=== PATIENT | male | born 1950 | race Caucasian/White ===

== ENCOUNTER 2016-04-29 18:02 | Inpatient (IN) | payer OTHER, MEDICAID ==
[2016-04-29] MEDS ORDERED: methylPREDNISolone SOD SUCC 125 MG/2 ML VIAL IVP ONE (18:29)
--- NOTE | 2016-04-29 18:30 | EDPHY ---
H & P Stated Complaint: COPD exacerbation HPI/ROS: Chief complaint shortness of breath HPI: 65-year-old male with known COPD and schizophrenia presenting from [facility] with worsening shortness of breath. Patient states that he intermittently wears 4-5 L of oxygen. Head worsening shortness of breath today. States that he sometimes uses inhalers but does not get them consistently is not sure with AR. Denies any fevers or chills. No cough. States he is feeling somewhat better after being brought in by ambulance. No nausea or vomiting. He is still smoking in did smoke this morning. ROS: 10 point Review of Systems is negative except as noted in the HPI. Past medical history: Schizophrenia, COPD Medications: Unknown Allergies: Penicillin Physical exam: - Personal History Current Tetanus/Diphtheria Vaccine: Unsure Current Tetanus Diphtheria and Acellular Pertussis (TDAP): Unsure - Medical/Surgical History Hx Asthma: Yes Hx Chronic Respiratory Disease: Yes Hx Diabetes: Yes Hx Cardiac Disease: No Hx Renal Disease: No Hx Cirrhosis: Yes Hx Alcoholism: Yes Hx HIV/AIDS: No Hx Splenectomy or Spleen Trauma: No Other PMH: copd,schizophrenia,sz,anxiety,DMII - Social History Smoking Status: Current every day smoker Constitutional: Initial Vital Signs Temperature (C) 37 C 04/29/16 18:20 Heart Rate 92 04/29/16 18:20 Respiratory Rate 22 H 04/29/16 18:20 Blood Pressure 126/84 H 04/29/16 18:20 O2 Sat (%) 91 L 04/29/16 18:20 O2 Delivery Mode Nasal Cannula O2 (L/minute) 4 Allergies/Adverse Reactions: Penicillins Allergy (Verified 11/18/15 19:10) Home Medications: Medication Instructions Recorded Acetaminophen [Tylenol ES 500 mg 500 mg PO Q8 PRN 04/29/16 (*)] Albuterol [Proventil Inhaler HFA 2 puffs IH Q4 PRN MDD COPD 04/29/16 (*)] Aspirin [Aspirin 325 mg (*)] 325 mg PO DAILY 04/29/16 Atorvastatin Calcium [Lipitor 40 80 mg PO HS 04/29/16 mg (*)] Cholecalciferol Vit D3 [Vitamin D3 50,000 unit PO MO@0800 04/29/16 (*)] Fluticasone/Salmeter 250/50Mcg 1 puffs IH BID 04/29/16 [Advair 250/50 (*)] Magnesium Hydroxide [Milk of 30 ml PO Q12 PRN 04/29/16 Magnesia] Nicotine [Nicoderm Cq 7 mg (*)] 7 mg TD DAILY PRN 04/29/16 Polyethylene Glycol 3350 [Miralax 17 gm PO DAILY PRN 04/29/16 17 gm (*)] Prochlorperazine Maleate 5 - 10 mg PO Q6 PRN 04/29/16 [Compazine 5mg (*)] QUEtiapine FUMARATE [Seroquel 300 mg PO BID 04/29/16 300mg (*)] Tamsulosin HCl [Flomax 0.4 MG (*)] 0.4 mg PO DAILY 04/29/16 Tiotropium Inhaler [Spiriva 18 mcg IH DAILY 04/29/16 Handihaler] clonAZEPAM [CLONAZEPAM] 0.25 mg PO BID PRN 04/29/16 levETIRAcetam [Keppra 500 mg (*)] 500 mg PO BID 04/29/16 traMADol [Ultram 50 mg (*)] 50 mg PO Q12H PRN 04/29/16 Medical Decision Making ED Course/Re-evaluation: 65-year-old male with COPD exacerbation. Patient satting at 88% on 4 L nasal cannula. I have discussed with Dr. Rolando vega, hospitalist. Will admit to his service for further evaluation and care. - Data Points Laboratory Results: Laboratory Results 04/29/16 18:40 04/29/16 18:40 04/29/16 04/29/16 18:40 18:40 WBC 6.51 10^3/uL 10^3/uL (3.80-9.50) RBC 4.24 10^6/uL L 10^6/uL (4.40-6.38) Hgb 13.6 g/dL L g/dL (13.7-17.5) Hct 40.0 % % (40.0-51.0) MCV 94.3 fL fL (81.5-99.8) MCH 32.1 pg pg (27.9-34.1) MCHC 34.0 g/dL g/dL (32.4-36.7) RDW 13.2 % % (11.5-15.2) Plt Count 180 10^3/uL 10^3/uL (150-400) MPV 9.4 fL fL (8.7-11.7) Neut % (Auto) 73.4 % % (39.3-74.2) Lymph % (Auto) 20.4 % % (15.0-45.0) [place] % (Auto) 4.6 % % (4.5-13.0) Eos % (Auto) 0.9 % % (0.6-7.6) Baso % (Auto) 0.5 % % (0.3-1.7) Nucleat RBC Rel Count 0.0 % % (0.0-0.2) Absolute Neuts (auto) 4.78 10^3/uL 10^3/uL (1.70-6.50) Absolute Lymphs (auto) 1.33 10^3/uL 10^3/uL (1.00-3.00) Absolute Monos (auto) 0.30 10^3/uL 10^3/uL (0.30-0.80) Absolute Eos (auto) 0.06 10^3/uL 10^3/uL (0.03-0.40) Absolute Basos (auto) 0.03 10^3/uL 10^3/uL (0.02-0.10) Absolute Nucleated RBC 0.00 10^3/uL 10^3/uL (0-0.01) Immature Gran % 0.2 % % (0.0-1.1) Immature Gran # 0.01 10^3/uL 10^3/uL (0.00-0.10) Sodium 144 mEq/L mEq/L (134-144) Potassium 4.0 mEq/L mEq/L (3.5-5.2) Chloride 101 mEq/L mEq/L (97-110) Carbon Dioxide 34 mEq/l H mEq/l (22-31) Anion Gap 9 mEq/L mEq/L (8-16) BUN 14 mg/dL mg/dL (7-23) Creatinine 0.5 mg/dL L mg/dL (0.7-1.3) Estimated GFR > 60 Glucose 133 mg/dL H mg/dL (70-100) Calcium 9.2 mg/dL mg/dL (8.5-10.4) Medications Given: Discontinued Medications Methylprednisolone Sodium Succinate (Solu-Medrol) 125 mg IVP EDNOW ONE Stop: 04/29/16 18:30 Last Admin: 04/29/16 19:04 Dose: 125 mg Departure - Departure Disposition: [facility] Acute Clinical Impression: Chronic obstructive pulmonary disease with acute exacerbation Condition: Fair
[2016-04-29 18:49] LABS: % IMMATURE GRANULYOCYTES 0.2 % (0.0-1.1); ABSOLUTE IMMATURE GRANULOCYTES 0.01 10^3/uL (0.00-0.10); ADD DIFF? NO; ADD MORPH? NO; ADD SCAN? NO; ATYPICAL LYMPHOCYTE FLAG 10 (0-99); FRAGMENT RBC FLAG 0 (0-99); HEMOGLOBIN 13.6 g/dL (13.7-17.5); LEFT SHIFT FLG 0 (0-99); LIPEMIA HEMOLYSIS FLAG 90 (0-99); MEAN CELL HEMOGLOBIN 32.1 pg (27.9-34.1); MEAN CELL VOLUME 94.3 fL (81.5-99.8); MEAN PLATELET VOLUME 9.4 fL (8.7-11.7); PLATELET CLUMPS FLAG 10 (0-99); PLATELET COUNT 180 10^3/uL (150-400); RED BLOOD CELL COUNT 4.24 10^6/uL (4.40-6.38); RED CELL DISTRIBUTION WIDTH 13.2 % (11.5-15.2)
[2016-04-29 19:00] LABS: ANION GAP 9 mEq/L (8-16); CALCIUM 9.2 mg/dL (8.5-10.4); CARBON DIOXIDE 34 mEq/l (22-31); CHLORIDE 101 mEq/L (97-110); CREATININE 0.5 mg/dL (0.7-1.3); GLOMERULAR FILTRATION RATE > 60; GLUCOSE 133 mg/dL (70-100); SODIUM 144 mEq/L (134-144)
[2016-04-29] MEDS ORDERED: ACETAMINOPHEN 325 MG TAB PO PRN (19:13)
--- NOTE | 2016-04-29 19:49 | GHP ---
[f rep st] HISTORY AND PHYSICAL DATE OF ADMISSION: 04/29/2016 CHIEF COMPLAINT: Short of breath. HISTORY OF PRESENT ILLNESS: This is a 65-year-old man who resides at [facility] who came in dona use of shortness of breath. He notes that he has COPD, continues to smoke. His shortness of breath started this morning. Not associated with any chest pain. He does have a productive cough. His n ext-door neighbor saw him and said that he looks so poorly that he should call 911. He is using his inhalers. He has not run out of any medications. PAST MEDICAL/SURGICAL HISTORY: 1. Schizophrenia. 2. COPD on unclear amount of oxygen (somewhere between 1 and 4 L at baseline). 3. BPH. 4. Hyperlipidemia. 5. Hip fracture status post repair. 6. Multiple orthopedic injuries. 7. CVA with residual left-sided weakness. MEDICATIONS: Please see medication reconciliation. ALLERGIES: Penicillin. FAMILY HISTORY: No COPD. SOCIAL HISTORY: He lives at [facility]. He continues to smoke. He does not drink alcohol. REVIEW OF SYSTEMS: A 10-point review of systems is conducted and is negative except per HPI. PHYSICAL EXAM: VITAL SIGNS: Blood pressure is 126/84, heart rate 92, respiration rate 22, saturati ng 91% on 4 L, temperature is 37. GENERAL: The patient is a pleasant man who appears moderately un comfortable, somewhat withdrawn. HEENT: Shows him to have his eyes closed during most of the inter view. He is normocephalic, atraumatic. CARDIOVASCULAR: Exam shows a regular rate and rhythm. No m urmurs, rubs, or gallops, but he does have a faint S1 and S2. PULMONARY: Exam shows him to be in m ild respiratory distress. He has wheezes with forced expiration. He has diminished breath sounds b ilaterally, but they are still audible. ABDOMEN: Soft, nontender, nondistended. SKIN: No rash. : No White. NEUROLOGIC: Exam shows him to be alert and oriented x3. He is moving all extremiti es. PSYCHIATRIC: Exam shows him to be somewhat tangential. LABS: CBC is relatively unremarkable apart from a mild anemia. Bicarb is 34, glucose 133. DATA: 1. Chest x-ray, which I personally viewed and interpreted, shows mild hyperexpansion, normal heart size. He has mild increase in his pulmonary vasculature. 2. I discussed with Dr. Pryor. Will admit to Medical-Surgical Unit. IMPRESSION AND PLAN: A 65-year-old man with a suspected chronic obstructive pulmonary disease exace rbation. 1. Chronic obstructive pulmonary disease exacerbation: He is moderately sick. He will receive kev roids, as well as IV antibiotics. Will place him on continuous pulse oximetry. If he worsens, will place him on BiPAP. I do not suspect any cardiovascular or pulmonary embolic etiologies of his dys pnea. 2. Ihoza-pm-vkulgop respiratory failure: Due to the above. 3. Likely chronic respiratory acidosis: His bicarb is elevated. Will recheck his basic metabolic panel in the morning. I do not think he needs an ABG at this point. 4. Schizophrenia: Seems well compensated. Will continue his medications when these are reconciled . 5. Hyperlipidemia. 6. Cerebrovascular accident with residual weakness: Will continue his aspirin and statin. 7. Code status is full. 8. Venous thromboembolism risk is moderate. Will give him low-dose Lovenox. /[id number]/MODL
[2016-04-29] MEDS ORDERED: IPRATROPIUM/ALBUTEROL 3 ML DEYVIAL ONE (20:44)
[2016-04-29] MEDS: IPRATROPIUM/ALBUTEROL 3 ML DEYVIAL IH SCH (20:48)
[2016-04-29] MEDS: AZITHROMYCIN IV 500 MG in D5W 250 ML IV SCH (21:20)
[2016-04-29] MEDS ORDERED: ALBUTEROL 60 PUFFS/8 GM MDI IH PRN (21:36)
[2016-04-29] MEDS ORDERED: NON-FORMULARY NEW DRUG (Clonazepam [Clonazepam] 0.25 MG) PO PRN (21:36)
[2016-04-29] MEDS ORDERED: MAGNESIUM HYDROXIDE 30 ML UDCUP PO PRN (21:36)
[2016-04-29] MEDS ORDERED: NICOTINE 7 MG/24 HR PATCH TD PRN (21:36)
[2016-04-29] MEDS ORDERED: PROCHLORPERAZINE MALEATE 5 MG TAB PO PRN (21:36)
[2016-04-29] MEDS ORDERED: POLYETHYLENE GLYCOL 3350 17 GM PKT PO PRN (21:36)
[2016-04-29] MEDS ORDERED: clonazePAM 0.5 MG TAB PO PRN (21:58)
[2016-04-29] MEDS: QUEtiapine FUMARATE 300 MG TAB PO SCH (23:53)
[2016-04-30 04:57] LABS: % IMMATURE GRANULYOCYTES 0.2 % (0.0-1.1); ABSOLUTE IMMATURE GRANULOCYTES 0.01 10^3/uL (0.00-0.10); ADD DIFF? NO; ADD MORPH? NO; ADD SCAN? NO; ATYPICAL LYMPHOCYTE FLAG 0 (0-99); FRAGMENT RBC FLAG 0 (0-99); HEMATOCRIT 40.3 % (40.0-51.0); HEMOGLOBIN 13.5 g/dL (13.7-17.5); LEFT SHIFT FLG 0 (0-99); LIPEMIA HEMOLYSIS FLAG 80 (0-99); MEAN CELL HEMOGLOBIN 31.7 pg (27.9-34.1); MEAN CELL HEMOGLOBIN CONCENTR. 33.5 g/dL (32.4-36.7); MEAN CELL VOLUME 94.6 fL (81.5-99.8); MEAN PLATELET VOLUME 9.8 fL (8.7-11.7); PLATELET CLUMPS FLAG 0 (0-99); PLATELET COUNT 176 10^3/uL (150-400); RED BLOOD CELL COUNT 4.26 10^6/uL (4.40-6.38); RED CELL DISTRIBUTION WIDTH 13.1 % (11.5-15.2)
[2016-04-30 05:07] LABS: ANION GAP 8 mEq/L (8-16); CARBON DIOXIDE 31 mEq/l (22-31); CHLORIDE 102 mEq/L (97-110); CREATININE 0.5 mg/dL (0.7-1.3); GLOMERULAR FILTRATION RATE > 60; GLUCOSE 170 mg/dL (70-100); POTASSIUM 4.3 mEq/L (3.5-5.2); SODIUM 141 mEq/L (134-144)
[2016-04-30] MEDS: IPRATROPIUM/ALBUTEROL 3 ML DEYVIAL IH SCH ×4 (05:11→22:20)
[2016-04-30] MEDS ORDERED: PNEUMOCOCCAL 0.5ML VACCINE VIAL IM ONE (07:42)
[2016-04-30] MEDS ORDERED: FLU VACC QS 2016-17(3-64YR)/PF 0.5 ML SYR (FLUARIX QUAD) IM ONE (07:42)
[2016-04-30] MEDS ORDERED: CHOLECALCIFEROL VIT D3 50,000 UNIT CAP PO SCH (08:00)
--- NOTE | 2016-04-30 08:33 | HOSPPROG ---
Hospitalist Progress Note Assessment/Plan: Patient is a 65-year-old man who resides at [facility] came in because of shortness of breath. He has COPD and continues to smoke. Today is my 1st encounter with the patient. Chart reviewed. * COPD exacerbation - started on IV antibiotics - on 5 L * acute on chronic respiratory failure -Patient wears oxygen at baseline but is unclear of how much oxygen he is on * chronic respiratory acidosis - stable/improved *Nicotine dependence -says he has cut back/ nicotine patch * recent hip surgery - patient states he is wheelchair-bound - will ask PT and OT to see * schizophrenia - well compensated * hyperlipidemia * history of a cerebral vascular accident with residual weakness - on aspirin and statin therapy * DVT prophylaxis - low molecular weight heparin * plan. Will see how he does overnight. He was started on azithromycin and prednisone and will see if he improves. Patient states he is upset about living at [facility]. He feels that he is treated poorly there. I suspect this also contributed him being admitted Subjective: Pavan is not complaining of pain but the shortness of breath. He states that shortness of breath is chronic. Objective: Vital Signs Temp Pulse Resp BP Pulse Ox 36.6 C 95 20 98/71 L 94 04/30/16 08:00 04/30/16 08:00 04/30/16 08:00 04/30/16 08:00 04/30/16 08:00 Laboratory Results 04/30/16 04:25 04/30/16 04:25 04/29/16 04/30/16 05/01/16 05:59 05:59 05:59 Intake Total 480 250 Output Total 300 275 Balance 180 -25 - Physical Exam Constitutional: no apparent distress, chronically ill appearing Eyes: PERRL Ears, Nose, Mouth, Throat: hearing normal Cardiovascular: regular rate and rhythym Respiratory: no respiratory distress, reduced air movement (bibasilar) Skin: warm Musculoskeletal: generalized weakness Neurologic: AAOx3 Psychiatric: interacting appropriately, not anxious, not encephalopathic ICD10 Worksheet Patient Problems: Problems Problem Status Onset Chronic obstructive pulmonary disease with acute exacerbation Acute Displaced fracture of left femoral neck Acute
[2016-04-30] MEDS: AZITHROMYCIN IV 500 MG in D5W 250 ML IV SCH (09:47)
[2016-04-30] MEDS: ENOXAPARIN 40 MG/0.4 ML SYR SC SCH (09:50)
[2016-04-30] MEDS: TAMSULOSIN HCL 0.4 MG CAP PO SCH (09:50)
[2016-04-30] MEDS: predniSONE 20 MG TAB PO SCH (09:50)
[2016-04-30] MEDS: levETIRAcetam 500 MG TAB PO SCH ×2 (09:51→20:22)
[2016-04-30] MEDS: ASPIRIN 325 MG TAB PO SCH (09:51)
[2016-04-30] MEDS: QUEtiapine FUMARATE 300 MG TAB PO SCH ×2 (09:51→20:22)
[2016-04-30] MEDS: ONDANSETRON DISINTEGRATING 4 MG TAB PO PRN ×2 (11:04→22:28)
[2016-04-30] MEDS: TIOTROPIUM INHALER 18 MCG/DOSE 5 DOSE/MDI IH SCH (11:36)
[2016-04-30] MEDS: FLUTICASONE/SALMETER 250/50MCG DISKUS IH SCH ×2 (11:37→22:20)
[2016-04-30] MEDS ORDERED: NS 250 ML IV ONE (17:09)
[2016-04-30] MEDS ORDERED: NS 1,000 ML IV SCH (17:15)
[2016-04-30] MEDS ORDERED: NS 1,000 ML IV ONE (19:57)
[2016-04-30] MEDS: ATORVASTATIN CALCIUM 40 MG TAB PO SCH (20:22)
[2016-04-30] MEDS: traMADol 50 MG TAB PO PRN (20:22)
[2016-05-01] MEDS: ONDANSETRON 4 MG/2 ML VIAL IVP PRN ×2 (00:45→05:08)
[2016-05-01] MEDS: ONDANSETRON DISINTEGRATING 4 MG TAB PO PRN (02:49)
[2016-05-01] MEDS: IPRATROPIUM/ALBUTEROL 3 ML DEYVIAL IH SCH ×4 (05:46→21:50)
[2016-05-01] MEDS: ENOXAPARIN 40 MG/0.4 ML SYR SC SCH (09:38)
[2016-05-01] MEDS: predniSONE 20 MG TAB PO SCH (09:39)
[2016-05-01] MEDS: levETIRAcetam 500 MG TAB PO SCH ×2 (09:39→20:18)
[2016-05-01] MEDS: QUEtiapine FUMARATE 300 MG TAB PO SCH ×2 (09:39→20:18)
[2016-05-01] MEDS: ASPIRIN 325 MG TAB PO SCH (09:39)
[2016-05-01] MEDS: AZITHROMYCIN 250 MG TAB PO SCH (09:39)
[2016-05-01] MEDS: TAMSULOSIN HCL 0.4 MG CAP PO SCH (09:42)
[2016-05-01] MEDS: FLUTICASONE/SALMETER 250/50MCG DISKUS IH SCH ×2 (11:05→21:50)
[2016-05-01] MEDS: TIOTROPIUM INHALER 18 MCG/DOSE 5 DOSE/MDI IH SCH (11:05)
--- NOTE | 2016-05-01 16:32 | HOSPPROG ---
Hospitalist Progress Note Assessment/Plan: Patient is a 65-year-old man who resides at [facility] came in because of shortness of breath. He has COPD and continues to smoke. * COPD exacerbation - started on IV antibiotics - on 4 L - better today * acute on chronic respiratory failure -Patient wears oxygen at baseline but is unclear of how much oxygen he is on * chronic respiratory acidosis - stable/improved *Nicotine dependence -says he has cut back/ nicotine patch * recent hip surgery - patient states he is wheelchair-bound - will ask PT and OT to see -has stitches in place/ will not allow nursing staff to remove * schizophrenia - well compensated * hyperlipidemia * history of a cerebral vascular accident with residual weakness - on aspirin and statin therapy * DVT prophylaxis - low molecular weight heparin * plan. difficult dispo situation/ patient is refusing to go to [facility] Subjective: Pavan said he is always short of breath. Objective: Vital Signs Temp Pulse Resp BP Pulse Ox 37.1 C 78 16 94/56 L 95 05/01/16 15:19 05/01/16 15:19 05/01/16 15:19 05/01/16 15:19 05/01/16 15:19 Laboratory Results 04/30/16 04:25 04/30/16 04:25 04/30/16 05/01/16 05/02/16 05:59 05:59 05:59 Intake Total 480 3155 Output Total 300 975 275 Balance 180 2180 -275 - Physical Exam Constitutional: no apparent distress, chronically ill appearing, unkempt Eyes: PERRL Ears, Nose, Mouth, Throat: hearing normal Cardiovascular: regular rate and rhythym Respiratory: no respiratory distress, reduced air movement (bibasilar) Gastrointestinal: normoactive bowel sounds Skin: warm Musculoskeletal: generalized weakness Neurologic: AAOx3 Psychiatric: agitated ICD10 Worksheet Patient Problems: Problems Problem Status Onset Chronic obstructive pulmonary disease with acute exacerbation Acute Displaced fracture of left femoral neck Acute
[2016-05-01] MEDS: ATORVASTATIN CALCIUM 40 MG TAB PO SCH (20:17)
[2016-05-01] MEDS: traMADol 50 MG TAB PO PRN (20:17)
[2016-05-02 05:30] LABS: ANION GAP 7 mEq/L (8-16); CALCIUM 8.5 mg/dL (8.5-10.4); CARBON DIOXIDE 32 mEq/l (22-31); CHLORIDE 101 mEq/L (97-110); CREATININE 0.5 mg/dL (0.7-1.3); GLOMERULAR FILTRATION RATE > 60; GLUCOSE 139 mg/dL (70-100); POTASSIUM 3.8 mEq/L (3.5-5.2); SODIUM 140 mEq/L (134-144)
[2016-05-02] MEDS: IPRATROPIUM/ALBUTEROL 3 ML DEYVIAL IH SCH ×4 (05:46→22:00)
[2016-05-02] MEDS: AZITHROMYCIN 250 MG TAB PO SCH (09:36)
[2016-05-02] MEDS: TAMSULOSIN HCL 0.4 MG CAP PO SCH (09:36)
[2016-05-02] MEDS: ASPIRIN 325 MG TAB PO SCH (09:36)
[2016-05-02] MEDS: predniSONE 20 MG TAB PO SCH (09:36)
[2016-05-02] MEDS: levETIRAcetam 500 MG TAB PO SCH ×2 (09:36→19:59)
[2016-05-02] MEDS: QUEtiapine FUMARATE 300 MG TAB PO SCH ×2 (09:36→19:59)
[2016-05-02] MEDS: ENOXAPARIN 40 MG/0.4 ML SYR SC SCH (09:36)
[2016-05-02] MEDS: FLUTICASONE/SALMETER 250/50MCG DISKUS IH SCH ×2 (09:57→22:00)
[2016-05-02] MEDS: TIOTROPIUM INHALER 18 MCG/DOSE 5 DOSE/MDI IH SCH (09:57)
--- NOTE | 2016-05-02 12:49 | HOSPPROG ---
Hospitalist Progress Note Assessment/Plan: Patient is a 65-year-old man who resides at [facility] came in because of shortness of breath. He has COPD and continues to smoke. * COPD exacerbation - started on IV antibiotics - on 4 L - better overall -decreased prednisone today to 40 mg from 60 mg * acute on chronic respiratory failure -Patient wears oxygen at baseline but is unclear of how much oxygen he is on *hyperglycemia -on steroids * chronic respiratory acidosis - stable *Nicotine dependence -says he has cut back/ nicotine patch * recent hip surgery - patient states he is wheelchair-bound - PT and OT seeing/willing to get OOB TID -has stitches in place/ will not allow nursing staff to remove * schizophrenia - overall well compensated * hyperlipidemia * history of a cerebral vascular accident with residual weakness - on aspirin and statin therapy * DVT prophylaxis - low molecular weight heparin * plan. difficult dispo situation/ patient is refusing to go to [facility]/ looking for other placement Subjective: Pavan says he gets dizzy sometimes when getting oob/ but doesn't want the nursing staff to do any more blood pressures to see if this is the cause. Objective: Vital Signs Temp Pulse Resp BP Pulse Ox 36.6 C 72 17 93/58 L 93 05/02/16 08:16 05/02/16 12:23 05/02/16 12:23 05/02/16 08:16 05/02/16 12:23 Laboratory Results 04/30/16 04:25 05/02/16 04:46 05/01/16 05/02/16 05/03/16 05:59 05:59 05:59 Intake Total 3155 1200 Output Total 975 575 100 Balance 2180 625 -100 - Physical Exam Constitutional: chronically ill appearing, unkempt Eyes: PERRL Ears, Nose, Mouth, Throat: hearing normal Cardiovascular: regular rate and rhythym Respiratory: no respiratory distress, reduced air movement Gastrointestinal: normoactive bowel sounds Musculoskeletal: generalized weakness Neurologic: AAOx3 Psychiatric: agitated (easily when asking questions) ICD10 Worksheet Patient Problems: Problems Problem Status Onset Chronic obstructive pulmonary disease with acute exacerbation Acute Displaced fracture of left femoral neck Acute
[2016-05-02] MEDS: ATORVASTATIN CALCIUM 40 MG TAB PO SCH (19:59)
[2016-05-02] MEDS: traMADol 50 MG TAB PO PRN (19:59)
[2016-05-03] MEDS: IPRATROPIUM/ALBUTEROL 3 ML DEYVIAL IH SCH ×4 (03:10→22:30)
[2016-05-03] MEDS: FLUTICASONE/SALMETER 250/50MCG DISKUS IH SCH ×2 (09:35→22:30)
[2016-05-03] MEDS: TIOTROPIUM INHALER 18 MCG/DOSE 5 DOSE/MDI IH SCH (09:36)
[2016-05-03] MEDS: levETIRAcetam 500 MG TAB PO SCH ×2 (09:54→20:55)
[2016-05-03] MEDS: AZITHROMYCIN 250 MG TAB PO SCH (09:54)
[2016-05-03] MEDS: ASPIRIN 325 MG TAB PO SCH (09:54)
[2016-05-03] MEDS: QUEtiapine FUMARATE 300 MG TAB PO SCH ×2 (09:54→20:55)
[2016-05-03] MEDS: ENOXAPARIN 40 MG/0.4 ML SYR SC SCH (09:55)
[2016-05-03] MEDS: TAMSULOSIN HCL 0.4 MG CAP PO SCH (09:55)
[2016-05-03] MEDS: predniSONE 20 MG TAB PO SCH (09:55)
--- NOTE | 2016-05-03 16:19 | HOSPPROG ---
Hospitalist Progress Note Assessment/Plan: Patient is a 65-year-old man who resides at [facility] came in because of shortness of breath. He has COPD and continues to smoke. This is my first encounter. Reviewed with CM at length. * COPD exacerbation - started on IV antibiotics - on 4 L - better overall -decreased prednisone today to 40 mg from 60 mg * acute on chronic respiratory failure -Patient wears oxygen at baseline but is unclear of how much oxygen he is on *hyperglycemia -on steroids * chronic respiratory acidosis - stable *Nicotine dependence -says he has cut back/ nicotine patch * recent hip surgery - patient states he is wheelchair-bound - PT and OT seeing/willing to get OOB TID -has stitches in place/ will not allow nursing staff to remove * schizophrenia - overall well compensated * hyperlipidemia * history of a cerebral vascular accident with residual weakness - on aspirin and statin therapy * DVT prophylaxis - low molecular weight heparin * plan. difficult dispo situation/ patient is refusing to go to [facility]/ [facility] looking for other placement Subjective: Feels ok. Still dizzy when getting up. No pain. Objective: Vital Signs Temp Pulse Resp BP Pulse Ox 36.6 C 88 18 102/64 90 L 05/02/16 22:52 05/03/16 09:35 05/03/16 09:35 05/02/16 22:52 05/03/16 13:30 Laboratory Results 04/30/16 04:25 05/02/16 04:46 05/02/16 05/03/16 05/04/16 05:59 05:59 05:59 Intake Total 1200 Output Total 575 650 200 Balance 625 -650 -200 - Physical Exam Constitutional: appears nourished, not in pain, chronically ill appearing Eyes: PERRL, anicteric sclera, EOMI Ears, Nose, Mouth, Throat: moist mucous membranes, hearing normal, ears appear normal Cardiovascular: No JVD, No tachycardia, No bradycardia Respiratory: no respiratory distress, no rales or rhonchi, reduced air movement Gastrointestinal: No tenderness, No ascites, No guarding Skin: warm, normal color, No erythema Musculoskeletal: normal joint ROM, abnormal gait, generalized weakness Psychiatric: not anxious, not encephalopathic, poor insight, poor judgement, poor memory ICD10 Worksheet Patient Problems: Problems Problem Status Onset Displaced fracture of left femoral neck Acute Chronic obstructive pulmonary disease with acute exacerbation Acute
[2016-05-03] MEDS: ATORVASTATIN CALCIUM 40 MG TAB PO SCH (20:55)
[2016-05-04] MEDS: IPRATROPIUM/ALBUTEROL 3 ML DEYVIAL IH SCH ×2 (06:04→11:40)
[2016-05-04 08:29] VITALS: BP 122/73; TEMP 98.7
[2016-05-04] MEDS: QUEtiapine FUMARATE 300 MG TAB PO SCH (08:33)
[2016-05-04] MEDS: ASPIRIN 325 MG TAB PO SCH (08:33)
[2016-05-04] MEDS: AZITHROMYCIN 250 MG TAB PO SCH (08:33)
[2016-05-04] MEDS: levETIRAcetam 500 MG TAB PO SCH (08:33)
[2016-05-04] MEDS: predniSONE 20 MG TAB PO SCH (08:33)
[2016-05-04] MEDS: ENOXAPARIN 40 MG/0.4 ML SYR SC SCH (08:33)
[2016-05-04] MEDS: TAMSULOSIN HCL 0.4 MG CAP PO SCH (08:33)
--- NOTE | 2016-05-04 09:09 | HOSPPROG ---
Hospitalist Progress Note Assessment/Plan: Patient is a 65-year-old man who resides at [facility] came in because of shortness of breath. He has COPD and continues to smoke. * COPD exacerbation - started on IV antibiotics - on 2 L - better overall -will wean prednisone * acute on chronic respiratory failure -Patient wears oxygen at baseline but is unclear of how much oxygen he is on *hyperglycemia -on steroids * chronic respiratory acidosis - stable *Nicotine dependence -says he has cut back/ nicotine patch * recent hip surgery - patient states he is wheelchair-bound - PT and OT seeing/willing to get OOB TID -has stitches in place/ will not allow nursing staff to remove * schizophrenia - overall well compensated * hyperlipidemia * history of a cerebral vascular accident with residual weakness - on aspirin and statin therapy * DVT prophylaxis - low molecular weight heparin * plan. dc today Subjective: Pavan has no c/o shortness of breath/ says his issues are his hip and back area. Objective: Vital Signs Temp Pulse Resp BP Pulse Ox 37.1 C 72 18 122/73 H 97 05/04/16 08:00 05/04/16 08:00 05/04/16 08:00 05/04/16 08:00 05/04/16 08:00 Laboratory Results 04/30/16 04:25 05/02/16 04:46 05/03/16 05/04/16 05/05/16 05:59 05:59 05:59 Output Total 650 850 Balance -650 -850 - Physical Exam Constitutional: no apparent distress, appears nourished, not in pain Eyes: PERRL Ears, Nose, Mouth, Throat: hearing normal Cardiovascular: regular rate and rhythym Respiratory: no respiratory distress, reduced air movement (bases but CTA) Gastrointestinal: normoactive bowel sounds Skin: warm Musculoskeletal: No no muscle tenderness (hip) Neurologic: AAOx3 Psychiatric: interacting appropriately ICD10 Worksheet Patient Problems: Problems Problem Status Onset Chronic obstructive pulmonary disease with acute exacerbation Acute Displaced fracture of left femoral neck Acute
[2016-05-04] MEDS: TIOTROPIUM INHALER 18 MCG/DOSE 5 DOSE/MDI IH SCH (11:40)
[2016-05-04] MEDS: FLUTICASONE/SALMETER 250/50MCG DISKUS IH SCH (11:40)
[2016-05-04 11:47] VITALS: PULSE 75; RESP 12; O2SAT 96
--- NOTE | 2016-05-04 14:49 | PDIAF ---
- Diagnosis Diagnosis: copd exacerbation, recent left hip fracture Code Status: Full Code - Medication Management Discharge Medications: Medications to Continue on Transfer Acetaminophen [Tylenol ES 500 mg (*)] 500 mg PO Q8 PRN 04/29/16 [Last Taken Unknown] Albuterol [Proventil Inhaler HFA (*)] 2 puffs IH Q4 PRN MDD COPD 04/29/16 [Last Taken Unknown] Aspirin [Aspirin 325 mg (*)] 325 mg PO DAILY 04/29/16 [Last Taken Unknown] Atorvastatin Calcium [Lipitor 40 mg (*)] 80 mg PO HS 04/29/16 [Last Taken Unknown] Cholecalciferol Vit D3 [Vitamin D3 (*)] 50,000 unit PO MO@0800 04/29/16 [Last Taken Unknown] Fluticasone/Salmeter 250/50Mcg [Advair 250/50 (*)] 1 puffs IH BID 04/29/16 [ Last Taken Unknown] Magnesium Hydroxide [Milk of Magnesia] 30 ml PO Q12 PRN 04/29/16 [Last Taken Unknown] Nicotine [Nicoderm Cq 7 mg (*)] 7 mg TD DAILY PRN 04/29/16 [Last Taken Unknown] Polyethylene Glycol 3350 [Miralax 17 gm (*)] 17 gm PO DAILY PRN 04/29/16 [Last Taken Unknown] Prochlorperazine Maleate [Compazine 5mg (*)] 5 - 10 mg PO Q6 PRN 04/29/16 [Last Taken Unknown] QUEtiapine FUMARATE [Seroquel 300mg (*)] 300 mg PO BID 04/29/16 [Last Taken Unknown] Tamsulosin HCl [Flomax 0.4 MG (*)] 0.4 mg PO DAILY 04/29/16 [Last Taken Unknown] Tiotropium Inhaler [Spiriva Handihaler] 18 mcg IH DAILY 04/29/16 [Last Taken Unknown] clonAZEPAM [CLONAZEPAM] 0.25 mg PO BID PRN 04/29/16 [Last Taken Unknown] levETIRAcetam [Keppra 500 mg (*)] 500 mg PO BID 04/29/16 [Last Taken Unknown] traMADol [Ultram 50 mg (*)] 50 mg PO Q12H PRN 04/29/16 [Last Taken Unknown] Ipratropium/Albuterol [Duoneb (*)] 3 ml IH Q6HRS #0 deyvial 05/04/16 [Last Taken Unknown] predniSONE 20 mg PO DAILY #0 tablet 05/04/16 [Last Taken Unknown] Discharge Medications: Refer to the Discharge Home Medication list for PRN reason. - Orders Services needed: Physical Therapy, Occupational Therapy Oxygen: 2-3 liters Diet Recommendation: no restrictions on diet Diet Texture: Regular Texture Diet Additional: take prednisone 20 mg daily x 5 more days, then 10 mg x 5 days, then dc/ take with food - Labs/Radiology BMP Date: 05/07/16 (weekly) - Follow Up Care Current Providers and Referrals: Patient,NotPresent [Unknown] - As per Instructions
--- NOTE | 2016-05-04 15:41 | GDS ---
[f rep st] DISCHARGE SUMMARY DISCHARGE DIAGNOSES: 1. Chronic obstructive pulmonary disease exacerbation. 2. Acute on chronic respiratory failure. 3. Hyperglycemia. 4. Chronic respiratory acidosis. 5. Nicotine dependence. 6. Recent hip surgery. 7. Schizophrenia. 8. Hyperlipidemia. 9. History of cerebrovascular accident with residual weakness. BRIEF HISTORY: Mr. Pavan Levine is a 65-year-old male who resides at [facility], who came in to [facility] for shortness of breath. He notes that he has COPD and continues to smoke. When he was admitted, he shared with me that he came to the ER because of his frustration at his senior living. He continued to improve throughout his stay. He was on 5 L of oxygen. Today, he is on 2 L and markedly improved. HOSPITAL COURSE: Per problem: 1. COPD exacerbation. He was treated with IV antibiotics and on prednisone. 2. Acute on chronic respiratory failure. He is on oxygen around the clock, but he is not clear on how much oxygen he is on. He is on 2 L and was initially on 5 L. 3. Hyperglycemia, steroid induced. 4. Chronic respiratory acidosis, stable. 5. Nicotine dependence. He has been cutting back on his nicotine use. He has a nicotine patch in place. 6. Recent hip surgery. PT and OT have been working with him. 7. Schizophrenia, overall well compensated. 8. Hyperlipidemia, statin. 9. History of cerebrovascular accident with residual weakness. He is on aspirin and statin therapy. PENDING LABS AND TESTS: None. CONDITION ON DISCHARGE: Stable. VITAL SIGNS: Blood pressure is 122/73, heart rate 75. Respiratory rate is 12. O2 sats on 2 L, 96%. Temperature 37.1 Celsius. DISCHARGE MEDICATIONS: Please see the EMR. DISCHARGE INSTRUCTIONS: 1. To wean off the prednisone slowly. 2. If he develops fever, chills, chest pain, or shortness of breath, return to the emergency room. Greater than 30 minutes discharging and coordinating care. /[id number]/MODL MTDD
== END 2016-05-04 15:56 | DRG 190 ==
LOC: EDUNIT# → F3E 20:00
PROVIDERS: ADMIT Student in an Organized Health Care Education/Training Program; ATTEND Hospitalist
DX: J44.1 Chronic obstructive pulmonary disease with (acute) exacerbation (principal); J96.20 Acute and chronic respiratory failure, unspecified whether with hypoxia or hypercapnia; E87.2 Acidosis; F20.9 Schizophrenia, unspecified; F17.210 Nicotine dependence, cigarettes, uncomplicated; E11.9 Type 2 diabetes mellitus without complications; E78.5 Hyperlipidemia, unspecified; I69.354 Hemiplegia and hemiparesis following cerebral infarction affecting left non-dominant side; Z99.81 Dependence on supplemental oxygen; Z23 Encounter for immunization
CPT/HCPCS: 96374; 97116-GP; 97161-GP; 97165-GO; 97530-GO; G0008; G0009; G8978-GP-CK; G8979-GP-CJ; G8987-GO-CK; G8988-GO-CJ; J0456; J1650; J2405